=== PATIENT | female | born 1950 | race Caucasian/White ===

== ENCOUNTER 2020-02-18 10:40 | Outpatient (REF) | payer MEDICARE, SELFPAY | END 2020-02-18 10:41 | disposition home or self-care (01) | LOC: HO.HMGCLDS 10:40 | PROVIDERS: PCP Internal Medicine; Visit Provider Internal Medicine | DX: Z20.828 Contact with and (suspected) exposure to other viral communicable diseases (principal) | CPT/HCPCS: 87635 ==

== ENCOUNTER 2021-05-12 16:37 | Outpatient (REF) | payer MEDICARE, SELFPAY ==
[2021-05-12 17:56] LABS: Influenza A PCR NEGATIVE (Negative); Influenza B PCR NEGATIVE (Negative); Resp Syncy Virus RNA Qual PCR NEGATIVE (Negative); SARS COV2 PCR INHOUSE NEGATIVE (Negative)
== END 2021-05-12 16:38 | disposition home or self-care (01) ==
LOC: HO.LNP 16:37
PROVIDERS: Visit Provider Physician Assistant
DX: Z20.822 Contact with and (suspected) exposure to COVID-19 (principal)
CPT/HCPCS: 0241U